=== PATIENT | female | born 1990 | race Caucasian/White ===

== ENCOUNTER 2019-09-03 12:21 | Emergency (ER) | payer OTHER ==
[~2019-09-03] VITALS: Ht 160 cm; Wt 68.6 kg
[2019-09-03 13:11] LABS: BASO % 0.5 % (0.0-1.0); EOS % 0.7 % (0.0-3.0); HEMATOCRIT 34.2 % (36.0-47.0); HEMOGLOBIN 11.5 g/dl (12.0-15.5); LYMPH # 2.2 10^3/uL (1.5-5.0); LYMPH % 36.2 % (24.0-44.0); MEAN CORPUSCULAR HEMOGLOBIN 28.8 pg (27.0-33.0); MEAN CORPUSCULAR HGB CONC 33.6 g/dl (32.0-36.5); MEAN CORPUSCULAR VOLUME 85.5 fl (80.0-96.0); MONO # 0.5 10^3/uL (0.0-0.8); MONO % 8.7 % (0.0-5.0); NEUTROPHILS # 3.3 10^3/uL (1.5-8.5); NEUTROPHILS % 53.6 % (36.0-66.0); PLATELET COUNT, AUTOMATED 199 10^3/uL (150-450); WHITE BLOOD COUNT 6.1 10^3/uL (4.0-10.0)
[2019-09-03] MEDS ORDERED: ISOVUE-370 76% 100ML VIAL As Ordered ONE (13:28)
[2019-09-03] MEDS: KETOROLAC 30 MG/ML 1ML VIAL IV ONE ×2 (13:30→13:33)
[2019-09-03 13:39] LABS: ALBUMIN 3.8 GM/DL (3.2-5.2); BILIRUBIN,DIRECT 0.2 MG/DL (0.0-0.2); BILIRUBIN,TOTAL 0.8 MG/DL (0.2-1.0)
[2019-09-03] MEDS ORDERED: COLA100C5 PO (14:50)
[2019-09-03 15:04] VITALS: BP 117/67
--- NOTE | 2019-09-03 17:47 | REP ---
CT ABDOMEN AND PELVIS WITH IV CONTRAST: TECHNIQUE: Axial contrast-enhanced images from the lung bases to the pubic symphysis using 100 mL Isovue-370 intravenous contrast material with multiplanar reformations. Visualized lung bases are clear. Multiple surgical clips are seen along the left lobe of the liver. No liver abnormality is seen. Spleen is normal in size with no intrinsic abnormality. The adrenal glands are normal. Pancreas is unremarkable. Kidneys are unremarkable. There is no abdominal aortic aneurysm. There is no adenopathy, free air, or free fluid. No bowel wall thickening is seen. There is a wide superior-anterior abdominal hernia, width is approximately 9.4 cm maximally. This contains nonobstructed bowel loops. Appendix is normal. In the pelvis, a follicle in the left ovary is noted measuring 1.9 cm. No other pelvic mass is seen. Urinary bladder appear unremarkable. IMPRESSION: In the superior abdomen anteriorly, there is a wide abdominal wall hernia anteriorly with a maximum width of 9.4 cm. This contains nonobstructed bowel. Electronically Signed by Alan Sharif MD 09/03/2019 11:13 P
== END 2019-09-03 15:14 | disposition home or self-care (01) ==
LOC: M ED 12:21
DX: K46.9 Unspecified abdominal hernia without obstruction or gangrene (principal)
CPT/HCPCS: 36415; 74177; 80047; 80076; 81001; 83690; 84702; 85025; 99284; Q9967

== ENCOUNTER → 2020-05-07 | Outpatient (REF) | payer OTHER ==
[~2020-05-07] MED LIST: COLA100C5 PO
[2020-05-07 18:31] LABS: MAGNESIUM LEVEL 2.4 MG/DL (1.8-2.4); THYROID STIMULATING HORMONE 0.786 uIU/ML (0.358-3.740); TOTAL 25(OH) VITAMIN D 25.6 NG/ML (30.0-100.0)
[2020-05-09 21:07] LABS: ANA (HEP2) Negative (.)
== END ==
LOC: M SFHCRHEU 15:03
PROVIDERS: ATTEND Internal Medicine
DX: I73.00 Raynaud's syndrome without gangrene (principal); R53.83 Other fatigue
CPT/HCPCS: 82306; 82607; 83540; 83735; 84443; 86038; G0463

== ENCOUNTER → 2020-05-26 | Outpatient (CLI) | payer OTHER ==
--- NOTE | 2020-05-28 11:52 | SLEEPHOME ---
DIAGNOSTIC HOME SLEEP STUDY DATE: 05/26/2020 ORDERED BY: Monalisa Spivey M.D. Diagnostic home sleep testing was performed due to concern for the obstructive sleep apnea syndrome in this patient with a history of fatigue. For testing, a nocturnal T3 respiratory monitoring device was used. Continuous record was made of pulse, oxygen saturation, air flow, chest and abdominal strain, and body position. 9 hours and 59 minutes of data were reviewed. There were 7 hours and 22 minutes marked as time in bed. During the interval marked time in bed, there was only one respiratory event identified of 10 seconds in duration or greater for a respiratory event index well within normal limits at 0.1. The patient's baseline pulse rate was 59. Pulse rate range 51 to 94. Baseline saturation was 965. Lowest oxygen saturation seen 94%. IMPRESSION: Normal diagnostic home sleep test. Evidence for obstructive sleep apnea syndrome was not seen.
== END ==
LOC: M SLEEP HO 15:43
PROVIDERS: ATTEND Internal Medicine
DX: R53.83 Other fatigue (principal)

== ENCOUNTER → 2020-11-14 | Outpatient (CLI) | payer OTHER ==
--- NOTE | 2020-11-14 17:09 | REP ---
INDICATION: F/U GROWTH , NOSE, LIPS. COMPARISON: None. TECHNIQUE: Real-time sonographic evaluation of the gravid uterus performed. FINDINGS: Estimated gestational age is28 weeks 5 days, EDC 02/01/2021. Today's measurements indicate appropriate growth. Presentation: Cephalic Placenta anterior, grade 1, without evidence of placenta previa. heart rate is recorded at 136 beats per minute. Amniotic fluid is subjectively normal. MATILDE 17.7, normal range 9.3-23.0. Closed cervical length is measured at 4.0 cm. Biometry chart: BPD: 73 mm, 29 weeks 1 days, 58th percentile. HC: 271 mm, 29 weeks 4 days, 68th percentile AC: 248 mm, 29 weeks 0 days, 57th percentile Femur length: 50 mm, 26 weeks 6 days, 11th percentile HC to AC ratio: 1.09, normal range 0.99-1.18. Estimated weight: 1215g, 26th percentile. anatomy: Cranium: Grossly normal Lateral Ventricles/Choroid Plexus: Grossly normal Posterior Fossa/Cerebellum: Grossly normal Nose/lips/profile: Grossly normal Four chamber heart: Grossly normal; echogenic focus in the left ventricle is likely related to chordae tendineae. Right ventricular outflow tract: Grossly normal Left ventricular outflow tract: Grossly normal Left-sided stomach: Grossly normal Kidneys: Grossly normal Bladder: Grossly normal Cord Insertion: Grossly normal 3 vessel cord: Grossly normal Spine: Not well seen due to position IMPRESSION: Viable single intrauterine gestation as above. <Electronically signed by Alan Sharif > 11/14/20 [id number]
== END ==
LOC: M RAD 14:04
PROVIDERS: ATTEND Registered Nurse Maternal Newborn
DX: Z36.2 Encounter for other antenatal screening follow-up (principal); Z3A.28 28 weeks gestation of pregnancy

== ENCOUNTER 2021-02-07 08:28 | Inpatient (IN) | payer OTHER ==
[~2021-02-07] VITALS: Ht 160 cm; Wt 90.4 kg
[2021-02-07] VITALS (16 sets, daily range): BP systolic 129–170; BP diastolic 72–107
[2021-02-07] MEDS ORDERED: PREN29CH2 PO (08:53)
[2021-02-07] MEDS ORDERED: HOME MED LIST COMPLETE! XX SCH (08:55)
[2021-02-07] MEDS ORDERED: LACTATED RINGER'S 1000 ML IV ONE (10:35)
[2021-02-07] MEDS ORDERED: PENICILLIN G POTASSIUM IV 5 MU in D5W MINI-BAG PLUS 100 ML IV STA ×2 (10:35→15:16)
[2021-02-07] MEDS ORDERED: OXYTOCIN INJ 10 UNITS/ML VIAL (J2590) IV PRN (10:35)
[2021-02-07] MEDS ORDERED: OXYTOCIN DRIP 30 UNITS in IV 1 EA IV PRN ×4 (10:35)
[2021-02-07] MEDS ORDERED: METHYLERGONOVINE MALEATE 0.2 MG/ML VIAL (J2210) IM PRN (10:35)
[2021-02-07] MEDS ORDERED: miSOPROStol 50MCG 1/2 TABLET PO ONE (10:35)
[2021-02-07 11:16] LABS: HEMATOCRIT 36.9 % (36.0-47.0); HEMOGLOBIN 12.3 g/dl (12.0-15.5); MEAN CORPUSCULAR HEMOGLOBIN 29.7 pg (27.0-33.0); MEAN CORPUSCULAR HGB CONC 33.3 g/dl (32.0-36.5); MEAN CORPUSCULAR VOLUME 89.1 fl (80.0-96.0); PLATELET COUNT, AUTOMATED 196 10^3/uL (150-450); RED BLOOD COUNT 4.14 10^6/uL (4.00-5.40); WHITE BLOOD COUNT 9.3 10^3/uL (4.0-10.0)
--- NOTE | 2021-02-07 11:43 | HPEPDOC ---
Obstetrical History & Physical General Date of Admission Vital Signs Label Value Date Time Patient Temperature 98.3 degrees F 02/07/21 0902 Temperature Source Temporal 02/07/21 09 Pulse 56 02/07/21 09 Respiratory Rate 18 bpm 02/07/21901 Blood Pressure Assessment 142/94 (110) 02/07/21901 Source Automatic Cuff (NIBP) Bedside Pulse Oximetry 97 % 02/07/21 09 Item Value Date Time White Blood Count 9.3 10^3/uL 02/07/21 1048 Red Blood Count 4.14 10^6/uL 02/07/21 1048 Hemoglobin 12.3 g/dl 02/07/21 1048 Hematocrit 36.9 % 02/07/21 1048 Mean Corpuscular Volume 89.1 fl 02/07/21 1048 Mean Corpuscular Hemoglobin Concent 33.3 g/dl 02/07/21 1048 Red Cell Distribution Width 13.2 % 02/07/21 1048 Mean Corpuscular Hemoglobin 29.7 pg 02/07/21 1048 Platelet Count 196 10^3/uL 02/07/21 1048 Feb 07, 2021 at 08:28 Primary Care Physician: Issa Finch MD History of Present Illness 02/07/2021 29 YO LMP04/27/2020 EDC BY EARLY US 11.2 WEEKS EDC 02/01/21 AT 40.6 WEEKS FOR IOL Chief Complaint: Other (IOL LATE TERM) Information Provided By: Patient Age: 30 : 1 Term: 0 Pre-term: 0 Abortions: 0 Livin Care Care: Good Care Number of Visits: 9 Dating Final EDC: Feb 01, 2021 Final EDC for Daily Update: Feb 01, 2021 Final EDC by: LMP LMP: Apr 27, 2020 1st Trimester Date: Jul 14, 2020 Weeks + Days: 11.2 Estimated Date of Confinement: Feb 01, 2021 EGA at Admission: 40.6 Antepartum Course Diagnos(e)s LATE TERM IOL Height (inches): 63 Pre- weight (lbs.): 154 Admission Weight (lbs.): 195 Change in Weight (lbs.): 41 Past Medical History Past Obstetrical History : 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 Past Medical History Medical History FAM HX METHYL MALONIC ACADEMIA CARRIER STATUS Surgical History: Other (LIVER DONATION, ABDOMINAL WALL RECONSTRUCTION,RIGHT ANKLE, LASIK, WISDOM TEETH) Family History Significant Family History: Other (FOB HX METHLY MALONIC ACIDEMIA CARRIER ) Family History FATHER TYPE 2 DIABETES GRAND MERE HYPERTENSION , FROM ALS GRAND FATHER CARDIAC ARREST AGE 44 Social History Social history NON SMOKER NO ETOH NO VAPING NO RECREATIONAL DRUGS TO AD NO VIOLENCE Marital Status: Family situation: Spouse/partner home Psychosocial History: No pertinent psych hx * Smoker: non-smoker Alcohol: Denies Drugs: denies Abuse Violence Screening Have you been hit/kicked/slapp: No Have you been sexually assault: No Imunizations Tdap status: current Influenza Status: needs Allergies Coded Allergies: morphine (Verified Allergy, Mild, Generalized itching, 02/07/21) Medications Scheduled No115/Iron/Folic Acid ( 19 Chewable Tablet) 1 Each Tab.chew, 1 TAB PO DAILY Physical Examination Physical Examination GENERAL: Alert and oriented times three. BREAST: . ABDOMEN: Gravid and non-tender to touch. FETUS: Is vertex (VTX) by sterile vaginal examination (SVE), fetus is vertex (VTX) by Luis. HEART RATE: Regular rate and rhythm. LUNGS: Clear to auscultation (CTA). EXTREMITIES: No edema. No clonus. Deep tendon reflexes (DTRs) + . Other physical findings ATRAUMATIC NECK FULL RANGE MOTION PERRLA CHEST DISTAL PULSES SYMMETRIC HRR LUNGS CLEAR TO BASES NO WHEEZE NO RHONCHI NO CTA TENDERNESS BACK NO RCVA TENDERNESS ABDOMEN SF HEIGHT 40 VERTEX BOWEL SOUNDS NORMAL CATEGORY 1 STRIP CERVIX POSTERIOR 1-2 50% EFFACED -3 STATION NO SHOW NO BLOOD Vital Signs/I&O Vital Signs Date Time Temp Pulse Resp B/P (MAP) Pulse Ox O2 Delivery O2 Flow Rate FiO2 02/07/21 09:02 98.3 56 18 142/94 (110) 97 Room Air Laboratory Data 24H LABS Laboratory Tests 2 02/07/21 08:55: Serology Scanned Report Hepatitis B Testing Pertinent Laboratoy Data Blood Type: O+ RBC Antibody Screen: Negative HIV: Negative Hepatitis B: Negative Rapid Plasma Reagin: Nonreactive Rubella: Immune Varicella: Immune Chlamydia/Gonorrhea: Negative Group B Streptococcus: Positive Quad Screen Test: Unknown Cystic Fibrosis: Negative Anatomy Ultrasound Ultrasound Date: Nov 14, 2020 Placenta Location: Anterior Normal Anatomy: Yes Placenta Previa: No Estimated Weight (grams): 1215 Steroid Therapy Steroid Therapy: No Vaginal Examination Dilation: 2cm Effacement: 50% Station: -3 Cervical Consistency: Soft Cervical Position: Posterior Presentation: Cephalic presentation Position: Vertex (occiput) Assessment Variability: Moderate Accelerations: Present Decelerations: None Tocometer Contractions: No Assessment/Plan Assessment 30year-old (G1 para (P 0 at 40.6 weeks by 11.2 -week ultrasound. Presents to Labor and Delivery (L&D) .FOR IOL Plan Admit and orient. Soap Mixer and consent. Diet: .JU Group B Streptococcus (GBS) POSITIVE Labs and intravenous (IV) per unit protocol. Counseled on Pitocin and induction of labor (IOL). MISOPROSTOL OR VALLE BULB Lactated Ringers (LR): Bolus 1000 mL, then at 125 mL/hr. Anticipate [normal spontaneous delivery ()]. C-S as appropriate. Labor and Delivery Counseling REVIEWED VAGINAL DELIVERY WITH POSSIBLE ASSISTANCE FORCEPS OR VACUUM FOR MATERNAL OR INDICATIONS MEDICATION USED TO INDUCE OR AUGMENT LABOR MAY BE NEEDED USED PER PROTOCOL. POSSIBLE EPISIOTOMY OR TEARS OR LACERATIONS FROM VAGINAL DELIVERY THAT MAY NEED REPAIR ALSO REPAIR TO VAGINA GUZMAN SPHINCTER RECTUM. IF INDICATED MAY REQUIRE C/S FOR MATERNAL OR INDICATIONS REMOTE FROM DELIVERY. PROVIDER WILL REVIEW INDICATIONS RISK RE CS HEMORRHAGE INFECTION PERFORATION REOPERATION REMOTE BLOOD TRANSFUSION REMOTE HYSTERECTOMY FOR LIFE THREATENING BLEEDING . POSSIBLE ADMISSION TO NICU EXPRESSED UNDERSTANDING SAFE TO CONTINUE WILL ADMINISTER ANTIBIOTICS FOR GBS 30 MINUTE DISCUSSION Issa Finch MD Feb 07, 2021 11:40
[2021-02-07] MEDS ORDERED: LR 1,000 ML IV SCH (15:20)
[2021-02-07] MEDS ORDERED: OXYTOCIN DRIP 30 UNITS in IV 1 EA IV SCH (15:20)
[2021-02-07] MEDS: LR 1,000 ML IV SCH (15:42)
[2021-02-07] MEDS: PENICILLIN G POTASSIUM IV 2.5 MU in IV 1 EA IV SCH (19:30)
[2021-02-07] MEDS ORDERED: LABETALOL 100MG/20ML VIAL IV STA (23:05)
[2021-02-07] MEDS ORDERED: LABETALOL 100MG/20ML VIAL As Ordered ONE (23:11)
[2021-02-07 23:58] LABS: CREATININE,RANDOM URINE 51.3 MG/DL; TOTAL PROTEIN,RANDOM URINE 9.9 MG/DL (0.0-12.0)
[2021-02-08] VITALS (84 sets, daily range): BP systolic 123–192; BP diastolic 57–104
[2021-02-08] MEDS: PENICILLIN G POTASSIUM IV 2.5 MU in IV 1 EA IV SCH ×4 (00:10→15:41)
[2021-02-08 00:47] LABS: ALT/SGPT 16 U/L (12-78); BILIRUBIN,TOTAL 0.1 MG/DL (0.2-1.0); CREATININE FOR GFR 0.78 MG/DL (0.55-1.30); GLOMERULAR FILTRATION RATE > 60.0 (>60); LDH LACTATE DEHYDROGENASE 180 U/L (84-246)
[2021-02-08] MEDS ORDERED: FENTANYL 2MCG/ML ROPIVACAINE 0.2% IN 0.9% NACL 100ML IVBAG As Ordered ONE (01:39)
--- NOTE | 2021-02-08 02:33 | IPNPDOC ---
Text Note Date of Service The patient was seen on 02/08/21. NOTE Vital Signs Label Value Date Time Blood Pressure Assessment 170/95 (120) 02/07/21 1457 Source Automatic Cuff (NIBP) Pulse 57 02/07/21 1457 Respiratory Rate 18 bpm 02/07/21 1457 Blood Pressure Assessment 129/78 (95) 02/07/21 1333 Source Automatic Cuff (NIBP) Respiratory Rate 18 bpm 02/07/21 1333 Pulse 55 02/07/21 1333 Blood Pressure Assessment 150/107 (121) 02/07/21 1320 Source Automatic Cuff (NIBP) Respiratory Rate 18 bpm 02/07/21 1320 Pulse 65 02/07/21 1320 Patient Temperature 98.5 degrees F 02/07/21 1320 Temperature Source Temporal 02/07/21 1320 Vital Signs Label Value Date Time Blood Pressure Assessment 144/94 (111) 02/07/21 1832 Source Automatic Cuff (NIBP) Blood Pressure Assessment 144/94 (111) 02/07/21 1832 Source Automatic Cuff (NIBP) Respiratory Rate 18 bpm 02/07/21 1832 Respiratory Rate 18 bpm 02/07/21 1832 Pulse 56 02/07/21 1832 Pulse 56 02/07/21 1832 Pulse 72 02/07/21 1803 Pulse 56 02/07/21 1734 Pulse 56 02/07/21 1704 Pulse 58 02/07/21 1633 Pulse 62 02/07/21 1603 Respiratory Rate 18 bpm 02/07/21 1603 Respiratory Rate 18 bpm 02/07/21 1633 Respiratory Rate 18 bpm 02/07/21 1704 Respiratory Rate 16 bpm 02/07/21 1734 Blood Pressure Assessment 146/82 (103) 02/07/21 1803 Source Automatic Cuff (NIBP) Blood Pressure Assessment 147/86 (106) 02/07/21 1734 Source Automatic Cuff (NIBP) Blood Pressure Assessment 141/89 (106) 02/07/21 1704 Source Automatic Cuff (NIBP) Blood Pressure Assessment 143/85 (104) 02/07/21 1633 Source Automatic Cuff (NIBP) Blood Pressure Assessment 136/92 (107) 02/07/21 1603 Source Automatic Cuff (NIBP) Patient Temperature 97.8 degrees F 02/07/21 1603 Temperature Source Temporal 02/07/21 1603 Pulse 59 02/07/21 1520 Respiratory Rate 18 bpm 02/07/21 1520 Blood Pressure Assessment 139/83 (101) 02/07/21 1520 Source Automatic Cuff (NIBP) Blood Pressure Assessment 139/84 (102) 02/07/21 1510 Source Automatic Cuff (NIBP) Respiratory Rate 18 bpm 02/07/21 1510 Pulse 55 02/07/21 1510 Pulse 57 02/07/21 1457 Respiratory Rate 18 bpm 02/07/21 1457 Blood Pressure Assessment 170/95 (120) 02/07/21 1457 Source Automatic Cuff (NIBP) Blood Pressure Assessment 129/78 (95) 02/07/21 1333 Source Automatic Cuff (NIBP) Respiratory Rate 18 bpm 02/07/21 1333 Pulse 55 02/07/21 1333 Blood Pressure Assessment 150/107 (121) 02/07/21 1320 Source Automatic Cuff (NIBP) Respiratory Rate 18 bpm 02/07/21 1320 Pulse 65 02/07/21 1320 Patient Temperature 98.5 degrees F 02/07/21 1320 Temperature Source Temporal 02/07/21 1320 Blood Pressure Assessment 130/78 (95) 02/07/21 1211 Source Automatic Cuff (NIBP) Respiratory Rate 18 bpm 02/07/21 1211 Pulse 59 02/07/21 1211 Blood Pressure Assessment 133/101 (112) 02/07/21 1200 Source Automatic Cuff (NIBP) Respiratory Rate 18 bpm 02/07/21 1200 Pulse 65 02/07/21 1200 Patient Temperature 98.2 degrees F 02/07/21 1055 Temperature Source Temporal 02/07/21 1055 Pulse 57 02/07/21 1055 Respiratory Rate 18 bpm 02/07/21 1055 Blood Pressure Assessment 131/72 (91) 02/07/21 1055 Source Automatic Cuff (NIBP) Blood Pressure Assessment 153/95 (114) 02/07/21 1022 Source Automatic Cuff (NIBP) Respiratory Rate 18 bpm 02/07/21 1022 Pulse 53 02/07/21 1022 Blood Pressure Assessment 142/94 (110) 02/07/21 0902 Source Automatic Cuff (NIBP) Respiratory Rate 18 bpm 02/07/21 0902 Pulse 56 02/07/21 0902 Patient Temperature 98.3 degrees F 02/07/21 0902 Temperature Source Temporal 02/07/21 0902 Item Value Date Time Urine Random Creatinine 51.3 MG/DL 02/07/212324 Urine Random Total Protein 9.9 MG/DL 02/07/212324 Item Value Date Time Creatinine 0.78 MG/DL 02/08/215 Glomerular Filtration Rate > 60.0 02/08/215 Uric Acid 6.0 MG/DL 02/08/215 Total Bilirubin 0.1 MG/DL L 02/08/21 000 Aspartate Amino Transf (AST/SGOT) 20 U/L 02/08/21 000 Alanine Aminotransferase (ALT/SGPT) 16 U/L 02/08/21 000 Lactate Dehydrogenase 180 U/L 02/08/21 000 Item Value Date Time White Blood Count 9.3 10^3/uL 02/07/21 1048 Red Blood Count 4.14 10^6/uL 02/07/21 1048 Hemoglobin 12.3 g/dl 02/07/21 1048 Hematocrit 36.9 % 02/07/21 1048 Mean Corpuscular Volume 89.1 fl 02/07/21 1048 Mean Corpuscular Hemoglobin 29.7 pg 02/07/21 1048 Mean Corpuscular Hemoglobin Concent 33.3 g/dl 02/07/21 1048 Red Cell Distribution Width 13.2 % 02/07/21 1048 Platelet Count 196 10^3/uL 02/07/21 1048 CALLED RE ELEVATED BLOOD PRESSURE IN SEVERE RANGE BLOOD PRESSURE . INITIATED BP PROTOCOL AND ORDERED PRE-E PROFILE . HAD 1 DOSE LABETALOL BP DOWN TO MID RANGE AREAS . DISCUSSION WITH PATIENT VERY ANXIOUS RE MOTHER AND FAMILY SITUATION ALSO FEELS THAT WILL NEED CS MOTHER AND SISTER HAD CS TOLD PATIENT CS IS NOT HEREDITARY. REVIEWED PROGRESS TO DATE ON PITOCIN DOES NOT TOLERATE PELVIC EXAMINATION . CERVIX 2-3 CM -3 STATION . REVIEWED PLAN OF ACTIVE MANAGEMENT TO HAVE EPIDURAL WILL RELAX PELVIC MUSCLES ALLOW FOR AROM AND ALLOW INCREASE PITOCIN . PATIENT WILL CONSULT WITH . P/C RATIO .192 VS,Fishbone, I+O VS, Fishbone, I+O Laboratory Tests 02/07/21 10:48 02/08/21 00:06 Vital Signs Date Time Temp Pulse Resp B/P (MAP) Pulse Ox O2 Delivery O2 Flow Rate FiO2 02/07/21 18:32 56 18 144/94 (111) Room Air 02/07/21 16:03 97.8 02/07/21 10:55 98 I&O- Last 24 Hours up to 6 AM 02/08/21 06:00 Intake Total 760 ml Output Total 100 ml Balance 660 ml Issa Finch MD Feb 08, 2021 02:26
[2021-02-08] MEDS ORDERED: NALOXONE INJ 0.4MG/1ML VIAL (J2310 PER 1MG) IV PRN (02:35)
[2021-02-08] MEDS ORDERED: LACTATED RINGER'S 1000 ML IV PRN (02:35)
[2021-02-08] MEDS ORDERED: ONDANSETRON 4MG/2ML VIAL IV PRN (02:35)
[2021-02-08] MEDS ORDERED: ePHEDrine SULFATE 25 MG/5 ML(5MG/ML) SYRINGE IV PRN (02:35)
[2021-02-08] MEDS ORDERED: REFRIGERATOR IV KEYS XX PRN (02:35)
[2021-02-08] MEDS ORDERED: EPIDURAL/PCA KEYS XX PRN (02:35)
[2021-02-08] MEDS ORDERED: diphenhydrAMINE 50MG/ML VIAL (J1200) IV PRN (02:35)
[2021-02-08] MEDS ORDERED: EPIDURAL COMMENT XX SCH (02:35)
--- NOTE | 2021-02-08 07:08 | IPNPDOC ---
Text Note Date of Service The patient was seen on 02/08/21. NOTE Vital Signs Label Value Date Time Blood Pressure Assessment 142/70 (94) 02/08/21 0625 Source Automatic Cuff (NIBP) Pulse 57 02/08/21 0625 Pulse 54 02/08/21 0611 Blood Pressure Assessment 140/73 (95) 02/08/21 0611 Source Automatic Cuff (NIBP) Blood Pressure Assessment 138/81 (100) 02/08/21 0554 Source Automatic Cuff (NIBP) Pulse 58 02/08/21 0554 Pulse 57 02/08/21 0539 Blood Pressure Assessment 146/86 (106) 02/08/21 0539 Source Automatic Cuff (NIBP) Pulse 60 02/08/21 0525 Blood Pressure Assessment 141/80 (100) 02/08/21 0525 Source Automatic Cuff (NIBP) Pulse 53 02/08/21 0509 Blood Pressure Assessment 148/85 (106) 02/08/21 0509 Source Automatic Cuff (NIBP) Pulse 54 02/08/21 0455 Blood Pressure Assessment 146/85 (105) 02/08/21 0455 Source Automatic Cuff (NIBP) Blood Pressure Assessment 143/81 (101) 02/08/21 0439 Source Automatic Cuff (NIBP) Pulse 56 02/08/21 0439 Pulse 57 02/08/21 0425 Blood Pressure Assessment 136/78 (97) 02/08/21 0425 Source Automatic Cuff (NIBP) Blood Pressure Assessment 139/78 (98) 02/08/21 0409 Source Automatic Cuff (NIBP) Pulse 57 02/08/21 0409 Pulse 62 02/08/21 0354 Blood Pressure Assessment 141/77 (98) 02/08/21 0354 Source Automatic Cuff (NIBP) Pulse 56 02/08/21 0339 Blood Pressure Assessment 149/78 (101) 02/08/21 0339 Source Automatic Cuff (NIBP) 02/09/20 review post epidural on Pitocin category 1 strip 1 cm thick progress to anterior arom clear fluid safe to proceed VS,Fishbone, I+O VS, Fishbone, I+O Laboratory Tests 02/07/21 10:48 02/08/21 00:06 Vital Signs Date Time Temp Pulse Resp B/P (MAP) Pulse Ox O2 Delivery O2 Flow Rate FiO2 02/07/21 18:32 56 18 144/94 (111) Room Air 02/07/21 16:03 97.8 02/07/21 10:55 98 I&O- Last 24 Hours up to 6 AM 02/08/21 05:59 Intake Total 760 ml Output Total 100 ml Balance 660 ml Issa Finch MD Feb 08, 2021 07:03
[2021-02-08] MEDS: FENTANYL/ROPIVACAINE/NACL BAG 100 ML EPIDURAL SCH ×2 (09:16→16:40)
[2021-02-08] MEDS: LR 1,000 ML IV SCH ×2 (11:12→16:50)
--- NOTE | 2021-02-08 11:38 | IPNPDOC ---
Text Note Date of Service The patient was seen on 02/08/21. NOTE 02/08/21 post epidural assessment on 18 munits Cooperocin has show and pressure category 1 strip 6 cm moulding well applied safe to proceed VS,Fishbone, I+O VS, Fishbone, I+O Laboratory Tests 02/08/21 00:06 Vital Signs Date Time Temp Pulse Resp B/P (MAP) Pulse Ox O2 Delivery O2 Flow Rate FiO2 02/08/21 10:21 55 18 155/81 (105) Room Air 02/08/21 09:49 98.2 02/07/21 10:55 98 I&O- Last 24 Hours up to 6 AM 02/08/21 06:00 Intake Total 760 ml Output Total 100 ml Balance 660 ml sIsa Finch MD Feb 08, 2021 11:38
[2021-02-08] MEDS ORDERED: LABETALOL 100MG/20ML VIAL IV STA ×2 (12:30→13:40)
[2021-02-08] MEDS ORDERED: BUPIVACAINE HCL 0.25% 10ML VIAL SC STA (17:12)
[2021-02-08] MEDS ORDERED: BUPIVACAINE HCL 0.5% 30 ML VIAL SC ONE (17:15)
[2021-02-08] MEDS ORDERED: BUPIVACAINE HCL 0.25% 10ML VIAL As Ordered ONE (17:15)
[2021-02-08 17:41] LABS: CORD GAS ABE A -7.1; CORD GAS HCO3 A 21.1 MEQ/L; CORD GAS O2 SAT A 19.2 %; CORD GAS PCO2 A 53.6 mmHg; CORD GAS PH A 7.214 UNITS; CORD GAS PO2 A 12.5 mmHg; CORD GAS SBC A 17.1 MEQ/L; CORD GAS TCO2 A 22.8 MEQ/L
[2021-02-08 17:43] LABS: CORD GAS ABE V -5.4; CORD GAS HCO3 V 20.2 MEQ/L; CORD GAS O2 SAT V 58.8 %; CORD GAS PCO2 V 39.8 mmHg; CORD GAS PH V 7.323 UNITS; CORD GAS SBC V 19.2 MEQ/L; CORD GAS TCO2 V 21.4 MEQ/L
[2021-02-08] MEDS ORDERED: DIBUCAINE 1% OINTMENT 30GM TOP PRN (18:20)
[2021-02-08] MEDS ORDERED: BUPIVACAINE HCL 0.25% 10ML VIAL INFIL ONE (18:20)
[2021-02-08] MEDS ORDERED: RHOGAM 300 MCG (1500 IU) INJ (J2790) IM SCH (18:20)
[2021-02-08] MEDS ORDERED: METHYLERGONOVINE MALEATE 0.2 MG TAB PO PRN (18:20)
[2021-02-08] MEDS ORDERED: ANUSOL HC CREAM 30GM TOP PRN (18:20)
[2021-02-08] MEDS ORDERED: MOM 30ML SUSPENSION UDC PO PRN (18:20)
[2021-02-08] MEDS ORDERED: MEASLES,MUMPS,RUBELLA VACCINE INJ (MMR-II) (90707) SC SCH (18:20)
--- NOTE | 2021-02-08 18:54 | DN ---
DELIVERY NOTE DATE OF DELIVERY: 02/08/2021 This is a 30-year-old, 1, para 0, admitted for induction of labor at 40 and 6 weeks of gestation. She had an epidural in place, had to be replaced times two to give her satisfactory pain control. We did a little local anesthetic and infiltrated the perineal area. She had a spontaneous vaginal delivery of a male infant weighing 7 pounds, 7 ounces, 3330 grams, scores of 8 and 9 at 1 and 5 minutes, respectively. Arterial pH 7.21, base excess -7.1, venous pH 7.32, base excess -5.4. Baby had an asynclitic head, was in the persistent occiput posterior (POP) position, quite deflexed, had a second-degree tear. The second-degree tear was oversewn in the usual fashion with a 2-0 J339. Anterior, posterior, and lateral meza are complete. Sphincter was intact. Capsule was intact. Uterus contracted well down on Pitocin. Patient and baby tolerated procedure well. Estimated blood loss 300 mL.
[2021-02-08] MEDS: IBUPROFEN 600MG TAB PO PRN (19:00)
[2021-02-08] MEDS: ACETAMINOPHEN 500 MG TAB PO PRN (20:28)
[2021-02-08] MEDS: DOCUSATE SODIUM 100MG CAPSULE PO PRN (22:32)
[2021-02-09] MEDS: IBUPROFEN 600MG TAB PO PRN ×3 (01:20→20:24)
[2021-02-09 02:00] VITALS: BP 119/69
[2021-02-09] MEDS: ACETAMINOPHEN TAB 650MG DOSE (2X325MG) PO PRN ×2 (04:31→18:50)
[2021-02-09 06:00] VITALS: BP 130/81
--- NOTE | 2021-02-09 07:18 | IPN ---
PROGRESS NOTE DATE: 02/09/2021 SUBJECTIVE: This patient requested circumcision of her male . After discussing risks and benefits of circumcision, the medical and non-medical indications, penile block and aftercare, expressed an understanding of penile block, aftercare and bleeding, signed the consent form, all questions were answered, a 20 minute discussion. We await clearance by the photo print specialist. cc: Kassie KYLE
--- NOTE | 2021-02-09 07:18 | IPN ---
PROGRESS NOTE DATE: 02/09/2021 DAY #1 SUBJECTIVE: A 30-year-old 1 now para 1 admitted for induction of labor at 40 and 6 weeks of gestation. Had a spontaneous vaginal delivery of a male in the deflexed position POP, livebirth, 7 pound, 7 ounces, 3330 grams, Apgars of 8 and 9 at 1 and 5 minutes respectively. Arterial pH 7.21, base excess -7.1, venous pH 7.32, base excess -5.4. She sustained a second degree laceration which was repaired in the usual fashion. 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 On her day #1, we discussed phlebitis, cystitis, mastitis, endometritis, cellulitis, diet, exercise, pain management perineal, breast and wound care. The rest of the examination is unremarkable. Normocephalic, atraumatic. Neck with full range of motion. Pupils equal and reactive to light. Distal pulses are symmetric. No evidence of DVT, PE or superficial phlebitis. Chest is clear bilaterally at bases. No wheezes or rhonchi. No CVA tenderness. Abdomen is soft, four quadrant bowel sounds are noted. Uterus is 2 below. Lochia is moderate. The perineum is healing. No rashes, lesions or pruritus. No arthralgias or myalgias. No complaint of joint pain. No complaint of cough, wheeze, shortness of breath or dyspnea on exertion. No nausea, vomiting, diarrhea or constipation. No urgency or frequency. The hernia repair is intact. No evidence of pain or discomfort. She had some intermittent elevated blood pressures throughout her delivery and throughout her laboring. She was given some reflex labetalol IV, however throughout her entire stay her blood pressures were within normal range. She never met criteria for preeclampsia or magnesium sulfate. Presently, her blood pressure is 130/81, respirations are 18, pulse is 79, temperature is 98.6. Reflexes are normal. Right upper quadrant is normal. No edema. No visual disturbances. Her admitting hemoglobin was 12.3, hematocrit 36.9 and platelets are 196,000. Her preeclamptic profile was negative. Our plan of management: She is breast-feeding today. Plans are for circumcision of her male , discharge tomorrow. Follow-up with six week at [facility] and brain picker medications at [facility]. All questions were answered, a 20 minute discussion. cc: Kassie KYLE
[2021-02-09 07:42] LABS: HEMATOCRIT 29.5 % (36.0-47.0); MEAN CORPUSCULAR HEMOGLOBIN 29.5 pg (27.0-33.0); MEAN CORPUSCULAR HGB CONC 32.9 g/dl (32.0-36.5); MEAN CORPUSCULAR VOLUME 89.7 fl (80.0-96.0); PLATELET COUNT, AUTOMATED 157 10^3/uL (150-450); RED BLOOD COUNT 3.29 10^6/uL (4.00-5.40)
[2021-02-09 07:45] LABS: HEMOGLOBIN 9.7 g/dl (12.0-15.5)
[2021-02-09] MEDS: PRENATAL VITAMINS CHEWABLE TABLET PO SCH (09:23)
[2021-02-09] MEDS: ACETAMINOPHEN 500 MG TAB PO PRN (09:28)
[2021-02-09 18:00] VITALS: BP 138/74
[2021-02-09] MEDS: DOCUSATE SODIUM 100MG CAPSULE PO PRN (19:34)
[2021-02-10] MEDS: ACETAMINOPHEN 500 MG TAB PO PRN (01:43)
[2021-02-10 06:00] VITALS: BP 150/82
--- NOTE | 2021-02-10 07:26 | IPNPDOC ---
Progress Note Date of Service: Feb 10, 2021 Progress Note 30 yo G1 now P1 PPD#2 s/p uncomplicated on 08Feb2021 after being admitted for an IOL for late term . BP was high during her intrapartum course and has been mildly elevated as well. This morning Stacey endorses a dull headache. She otherwise denies RUQ pain or visual changes. She is ambulating, voiding, and tolerating a regular diet. Lochia is minimal. Vitals - BP 150s/80s. Afebrile, non tachycardic General - AAOX3, sitting up in bed, NAD Abdomen - Fundus firm at U-2. No fundal tenderness Extremities - 2+ pitting edema Will continue to monitor BP today and check CBC, CMP. If blood pressure normalizes she can potentially be discharged home later this afternoon if CBC and CMP normal. She will follow up in the office in 2 days for a BP check. All patient questions answered. Behzad VS, I&O, 24H, Lorenzobonmeghna Vital Signs/I&O Vital Signs Date Time Temp Pulse Resp B/P (MAP) Pulse Ox O2 Delivery O2 Flow Rate FiO2 02/10/21 06:00 98.1 77 18 150/82 (104) 99 Room Air OLEKSANDR MCMULLEN DO Feb 10, 2021 07:26
[2021-02-10] MEDS ORDERED: BOOSTRIX/ADACEL VACCINE (DIPHTH/PERTUSS/ACELL/TETANUS) 0.5ML SYR IM ONE (09:00)
[2021-02-10] MEDS ORDERED: INFLUENZA QUADRIVALENT PF VACCINE 0.5ML SYRINGE IM ONE (09:00)
[2021-02-10 09:16] LABS: HEMATOCRIT 29.7 % (36.0-47.0); HEMOGLOBIN 9.8 g/dl (12.0-15.5); MEAN CORPUSCULAR HEMOGLOBIN 29.7 pg (27.0-33.0); PLATELET COUNT, AUTOMATED 184 10^3/uL (150-450); WHITE BLOOD COUNT 11.7 10^3/uL (4.0-10.0)
[2021-02-10] MEDS: PRENATAL VITAMINS CHEWABLE TABLET PO SCH (09:18)
[2021-02-10 09:41] LABS: ALBUMIN 2.2 GM/DL (3.2-5.2); ALT/SGPT 20 U/L (12-78); BILIRUBIN,TOTAL 0.2 MG/DL (0.2-1.0); BLOOD UREA NITROGEN 15 MG/DL (7-18); CALCIUM LEVEL 8.5 MG/DL (8.5-10.1); CARBON DIOXIDE LEVEL 26 MEQ/L (21-32); CHLORIDE LEVEL 109 MEQ/L (98-107); CREATININE FOR GFR 0.81 MG/DL (0.55-1.30); GLOMERULAR FILTRATION RATE > 60.0 (>60); GLUCOSE, FASTING 56 MG/DL (70-100); POTASSIUM SERUM 4.1 MEQ/L (3.5-5.1); SODIUM LEVEL 141 MEQ/L (136-145); TOTAL PROTEIN 5.8 GM/DL (6.4-8.2)
[2021-02-10 10:08] VITALS: BP 141/89
[2021-02-10] MEDS: IBUPROFEN 600MG TAB PO PRN (10:51)
[2021-02-10] MEDS ORDERED: IBUP-1022 PO (11:25)
[2021-02-10] MEDS ORDERED: COLA100C5 PO (11:25)
[2021-02-10] MEDS ORDERED: ACET-683 PO (11:25)
--- NOTE | 2021-02-10 11:31 | OBDS ---
[facility] Obstetrical Discharge Sum. A/P, Post Course List any complications 30 yo G1 now P1 PPD#2 s/p uncomplicated on 08Feb2021 after being admitted for an IOL for late term . BP was high during her intrapartum course and has been mildly elevated as well. This morning Stacey endorses a dull headache- which resolved with observation. She otherwise denies RUQ pain or visual changes. She is ambulating, voiding, and tolerating a regular diet. Lochia is minimal. Vitals - BP 138/60's. Afebrile, non tachycardic General - AAOX3, sitting up in bed, NAD Abdomen - Fundus firm at U-2. No fundal tenderness Extremities - 2+ pitting edema Will continue to monitor BP today and check CBC, CMP- remained normal and BP Resolved . She will follow up in the office in 2 and 7 days and 2 weeks for a BP check. All patient questions answered. CHRISTOPHER BHAT MD Feb 10, 2021 11:31
== END 2021-02-10 13:40 | disposition home or self-care (01) | DRG 807 ==
LOC: M LDI 08:28 → M OBS 02-08 20:08
PROVIDERS: ADMIT Obstetrics & Gynecology; ATTEND Obstetrics & Gynecology
PROC: 3E033VJ Introduction of Other Hormone into Peripheral Vein, Percutaneous Approach (ICD-10-PCS; 2021-02-07)
PROC: 10E0XZZ Delivery of Products of Conception, External Approach (ICD-10-PCS; principal; 2021-02-08)
PROC: 0KQM0ZZ Repair Perineum Muscle, Open Approach (ICD-10-PCS; 2021-02-08)
PROC: 10907ZC Drainage of Amniotic Fluid, Therapeutic from Products of Conception, Via Natural or Artificial Opening (ICD-10-PCS; 2021-02-08)
DX: O48.0 Post-term pregnancy (principal); Z37.0 Single live birth; Z3A.40 40 weeks gestation of pregnancy; O99.824 Streptococcus B carrier state complicating childbirth; R03.0 Elevated blood-pressure reading, without diagnosis of hypertension; O70.1 Second degree perineal laceration during delivery

== ENCOUNTER 2021-02-13 13:00 | Emergency (ER) | payer OTHER ==
[~2021-02-13] VITALS: Ht 160 cm; Wt 82.1 kg
[~2021-02-13 13:00] MED LIST changes: -CEPH500C PO; -DOCU100C16 PO; -IBUP80TA PO; -PREN27TA3 PO
[2021-02-13] MEDS ORDERED: NS 1,000 ML IV ONE (16:25)
[2021-02-13 17:04] LABS: BASO # 0.1 10^3/uL (0.0-0.2); BASO % 0.4 % (0.0-1.0); EOS # 0.2 10^3/uL (0.0-0.5); EOS % 1.8 % (0.0-3.0); HEMATOCRIT 35.2 % (36.0-47.0); HEMOGLOBIN 11.5 g/dl (12.0-15.5); LYMPH # 2.8 10^3/uL (1.5-5.0); LYMPH % 22.6 % (24.0-44.0); MEAN CORPUSCULAR HEMOGLOBIN 29.5 pg (27.0-33.0); MEAN CORPUSCULAR HGB CONC 32.7 g/dl (32.0-36.5); MEAN CORPUSCULAR VOLUME 90.3 fl (80.0-96.0); MONO # 0.8 10^3/uL (0.0-0.8); MONO % 6.4 % (2.0-8.0); NEUTROPHILS # 8.3 10^3/uL (1.5-8.5); NEUTROPHILS % 67.4 % (36.0-66.0); PLATELET COUNT, AUTOMATED 314 10^3/uL (150-450); WHITE BLOOD COUNT 12.3 10^3/uL (4.0-10.0)
[2021-02-13 17:09] LABS: APPEARANCE, URINE CLEAR (CLEAR); BACTERIA, URINE AUTO 1+ (NEGATIVE); BILIRUBIN, URINE AUTO NEGATIVE (NEGATIVE); BLOOD, URINE BLOOD 3+ (NEGATIVE); COLOR, URINE STRAW (YELLOW); GLUCOSE, URINE (UA) AUTO NEGATIVE (NEGATIVE); KETONE, URINE AUTO NEGATIVE (NEGATIVE); LEUKOCYTE ESTERASE, URINE AUTO 2+ (NEGATIVE); NITRITE, URINE AUTO NEGATIVE (NEGATIVE); PROTEIN, URINE AUTO NEGATIVE (NEGATIVE); RBC, URINE AUTO 0 /HPF (0-3); SPECIFIC GRAVITY URINE AUTO 1.002 (1.002-1.035); SQUAMOUS EPITHELIAL CELL UR AU 0 /HPF (0-6); UROBILINOGEN, URINE AUTO 0.2 mg/dL (0.0-2.0); WBC, URINE AUTO 18 /HPF (0-3)
[2021-02-13 17:37] LABS: ALBUMIN 2.9 GM/DL (3.2-5.2); ALT/SGPT 46 U/L (12-78); BILIRUBIN,DIRECT < 0.1 MG/DL (0.0-0.2); BILIRUBIN,TOTAL 0.2 MG/DL (0.2-1.0); BLOOD UREA NITROGEN 11 MG/DL (7-18); CALCIUM LEVEL 8.5 MG/DL (8.5-10.1); CARBON DIOXIDE LEVEL 27 MEQ/L (21-32); CHLORIDE LEVEL 110 MEQ/L (98-107); CREATININE FOR GFR 0.84 MG/DL (0.55-1.30); GLOMERULAR FILTRATION RATE > 60.0 (>60); GLUCOSE, FASTING 80 MG/DL (70-100); MAGNESIUM LEVEL 2.2 MG/DL (1.8-2.4); POTASSIUM SERUM 4.2 MEQ/L (3.5-5.1); SODIUM LEVEL 144 MEQ/L (136-145); TOTAL PROTEIN 6.5 GM/DL (6.4-8.2); URIC ACID 5.3 MG/DL (2.6-6.0)
[2021-02-13] MEDS ORDERED: CEPH500C PO ×3 (18:10→19:41)
[2021-02-13] MEDS ORDERED: CEPHALEXIN 500 MG CAP PO ONE (18:30)
[2021-02-13] MEDS ORDERED: DOCU100C16 PO (18:35)
[2021-02-13] MEDS ORDERED: IBUP80TA PO (18:35)
[2021-02-13] MEDS ORDERED: PREN27TA3 PO (18:35)
[2021-02-13] MEDS ORDERED: HOME MED LIST COMPLETE! XX SCH (18:40)
[2021-02-13 18:59] LABS: RSV AMPLIFICATION NEGATIVE (NEGATIVE)
[2021-02-13 19:30] VITALS: BP 137/90
== END 2021-02-13 19:45 | disposition home or self-care (01) ==
LOC: M ED 13:00
DX: O89.4 Spinal and epidural anesthesia-induced headache during the puerperium (principal); N39.0 Urinary tract infection, site not specified

== ENCOUNTER → 2021-02-13 | Outpatient (CLI) | payer OTHER ==
[~2021-02-13] MED LIST changes: +ACET-683 PO; +CEPH500C PO; +DOCU100C16 PO; +IBUP-1022 PO; +IBUP80TA PO; +PREN27TA3 PO; +PREN29CH2 PO
[2021-02-13 20:45] VITALS: BP 143/85
== END ==
LOC: M OPP 19:17
PROVIDERS: ATTEND Anesthesiology
DX: O99.355 Diseases of the nervous system complicating the puerperium (principal)